=== PATIENT | female | born 1965 | race Two or more races ===

== ENCOUNTER 2022-07-19 12:36 | Outpatient (CLI) | payer OTHER | END 2022-07-19 12:37 | disposition home or self-care (01) | LOC: NUCLEAR 12:36 | PROVIDERS: ATTEND Internal Medicine Endocrinology, Diabetes & Metabolism | DX: M81.0 Age-related osteoporosis without current pathological fracture (principal) ==

== ENCOUNTER → 2022-07-19 14:45 | Outpatient (CLI) | payer OTHER | END | disposition home or self-care (01) | LOC: MAMO-SONO | PROVIDERS: ATTEND Specialist | DX: Z12.31 Encounter for screening mammogram for malignant neoplasm of breast (principal); R10.84 Generalized abdominal pain; R74.02 Elevation of levels of lactic acid dehydrogenase [LDH]; N63.0 Unspecified lump in unspecified breast; R10.2 Pelvic and perineal pain; E04.1 Nontoxic single thyroid nodule ==

== ENCOUNTER → 2022-08-22 08:52 | Outpatient (CLI) | payer OTHER | END | disposition home or self-care (01) | LOC: LAB 08:52 | PROVIDERS: ATTEND Specialist | DX: D50.9 Iron deficiency anemia, unspecified (principal); D68.9 Coagulation defect, unspecified; E83.51 Hypocalcemia; N39.0 Urinary tract infection, site not specified; E03.9 Hypothyroidism, unspecified ==

== ENCOUNTER 2022-09-06 07:35 | Inpatient (IN) | payer OTHER ==
[~2022-09-06] VITALS: Ht 157.5 cm; Wt 59.9 kg
[~2022-09-06 07:35] MED LIST: SYNTHROID50 MCG PO
== END 2022-09-10 08:46 | disposition home or self-care (01) | DRG 743 ==
LOC: OB/GYN 09-07 05:45 → O/R 09-07 05:45 → SURH 09-07 07:00 → OB/GYN 09-07 11:07 → SURH 09-07 11:30 → OB/GYN 09-10 08:46
PROVIDERS: ADMIT Specialist; ATTEND Specialist
PROC: 0JQC0ZZ Repair Pelvic Region Subcutaneous Tissue and Fascia, Open Approach (ICD-10-PCS; 2022-09-07)
PROC: 0UT97ZZ Resection of Uterus, Via Natural or Artificial Opening (ICD-10-PCS; principal; 2022-09-07 07:00)
DX: D25.1 Intramural leiomyoma of uterus (principal); N81.6 Rectocele; Z20.822 Contact with and (suspected) exposure to COVID-19